=== PATIENT | female | born 1980 | race Caucasian/White ===

== ENCOUNTER 2017-05-11 14:41 | Emergency (ER) | payer OTHER ==
[2017-05-11 15:20] VITALS: BP 138/93
== END 2017-05-11 15:20 | disposition home or self-care (01) ==
LOC: ED 14:41
DX: S80.862A Insect bite (nonvenomous), left lower leg, initial encounter (principal); R03.0 Elevated blood-pressure reading, without diagnosis of hypertension; Z88.6 Allergy status to analgesic agent; Z88.5 Allergy status to narcotic agent; W57.XXXA Bitten or stung by nonvenomous insect and other nonvenomous arthropods, initial encounter; Y93.89 Activity, other specified; Y99.8 Other external cause status; Y92.89 Other specified places as the place of occurrence of the external cause
CPT/HCPCS: Q0163

== ENCOUNTER 2017-06-17 18:31 | Emergency (ER) | payer OTHER ==
[~2017-06-17] VITALS: Ht 162.6 cm; Wt 88.5 kg
[2017-06-17 23:36] VITALS: BP 121/77
== END 2017-06-17 23:36 | disposition home or self-care (01) ==
LOC: ED 18:31
DX: K59.00 Constipation, unspecified (principal); N83.202 Unspecified ovarian cyst, left side; Z88.5 Allergy status to narcotic agent; Z88.6 Allergy status to analgesic agent
CPT/HCPCS: J2270

== ENCOUNTER 2018-04-08 09:27 | Emergency (ER) | payer OTHER ==
[~2018-04-08] VITALS: Ht 162.6 cm; Wt 89.4 kg
[2018-04-08 09:47] VITALS: Ht 162.6 cm; Wt 89.4 kg
[2018-04-08 11:09] LABS: BASOPHIL % 0.8 % (0-2); PLATELET COUNT 309 x10^3mcL (130-400); RED CELL DISTRIBUTION WIDTH 14.5 % (11.5-14.5)
[2018-04-08 11:18] LABS: CALCIUM 8.8 mg/dL (8.5-10.1); CARBON DIOXIDE 28.4 mmol/L (21-32); CHLORIDE SERUM 107 mmol/L (98-107); CREATININE SERUM 0.7 mg/dL (0.6-1.0); GFR1 > 60 mL/min; GLUCOSE SERUM 93 mg/dL (74-106); POTASSIUM SERUM 3.9 mmol/L (3.5-5.1); SODIUM SERUM 141 mmol/L (136-145)
[2018-04-08 11:23] LABS: ALBUMIN 3.4 g/dL (3.4-5.0); ALKALINE PHOSPHATASE 103 U/L (46-116); ALT/SGPT 21 U/L (14-59); AST/SGOT 15 U/L (15-37); BILIRUBIN TOTAL 0.3 mg/dL (0.20-1.00); TOTAL PROTEIN, SERUM 7.7 g/dL (6.4-8.2)
[2018-04-08 12:28] VITALS: BP 126/93
== END 2018-04-08 13:00 | disposition home or self-care (01) ==
LOC: ED 09:27
PROVIDERS: Emergency Medicine
DX: N92.0 Excessive and frequent menstruation with regular cycle (principal); R42 Dizziness and giddiness; Z88.5 Allergy status to narcotic agent; Z88.6 Allergy status to analgesic agent; Z88.8 Allergy status to other drugs, medicaments and biological substances
CPT/HCPCS: 36415

== ENCOUNTER 2018-06-26 13:35 | Emergency (ER) | payer OTHER ==
[~2018-06-26] VITALS: Ht 162.6 cm; Wt 87.1 kg
[2018-06-26 15:59] VITALS: BP 123/71
== END 2018-06-26 15:59 | disposition home or self-care (01) ==
LOC: ED 13:35
DX: S93.602A Unspecified sprain of left foot, initial encounter (principal); Z90.49 Acquired absence of other specified parts of digestive tract; Z98.51 Tubal ligation status; Z88.6 Allergy status to analgesic agent; W01.0XXA Fall on same level from slipping, tripping and stumbling without subsequent striking against object, initial encounter; Y93.01 Activity, walking, marching and hiking; Y92.89 Other specified places as the place of occurrence of the external cause; Y99.8 Other external cause status
CPT/HCPCS: Q0092

== ENCOUNTER 2019-01-09 09:40 | Emergency (ER) | payer OTHER ==
[~2019-01-09] VITALS: Ht 162.6 cm; Wt 85.7 kg
[2019-01-09 09:51] VITALS: Ht 162.6 cm; Wt 85.7 kg
[2019-01-09 11:05] VITALS: BP 122/74
== END 2019-01-09 11:05 | disposition home or self-care (01) ==
LOC: ED 09:40
DX: F41.9 Anxiety disorder, unspecified (principal); G47.00 Insomnia, unspecified; F32.9 Major depressive disorder, single episode, unspecified; Z90.49 Acquired absence of other specified parts of digestive tract; Z98.51 Tubal ligation status; Z88.6 Allergy status to analgesic agent; Z88.5 Allergy status to narcotic agent

== ENCOUNTER 2019-01-31 21:20 | Emergency (ER) | payer OTHER | END 2019-01-31 23:06 | disposition home or self-care (01) | LOC: ED 21:20 ==

== ENCOUNTER 2019-08-16 04:41 | Emergency (ER) | payer OTHER ==
[~2019-08-16] VITALS: Ht 162.6 cm; Wt 83.9 kg
[2019-08-16 04:46] VITALS: Ht 162.6 cm; Wt 83.9 kg
[2019-08-16 06:49] VITALS: BP 115/55
== END 2019-08-16 06:47 | disposition home or self-care (01) ==
LOC: ED 04:41
DX: R10.2 Pelvic and perineal pain (principal); G89.29 Other chronic pain; Z88.6 Allergy status to analgesic agent; Z88.5 Allergy status to narcotic agent